=== PATIENT | male | born 1990 | race Two or more races ===

== ENCOUNTER 2021-11-09 20:52 | Emergency (ER) | payer MEDICAID, OTHER ==
[2021-11-09 21:11] VITALS: PULSE 89
[2021-11-09 21:37] VITALS: BP 155/103
[2021-11-09] MEDS ORDERED: Lisinopril 10 MG Tab PO ONE (21:47)
== END 2021-11-09 21:54 ==
LOC: MW.ED 20:52
DX: I10 Essential (primary) hypertension (principal); E66.9 Obesity, unspecified; Z68.29 Body mass index [BMI] 29.0-29.9, adult
CPT/HCPCS: 99283; A9270